=== PATIENT | male | born 2000 | race Caucasian/White ===

== ENCOUNTER 2022-02-10 06:16 | Emergency (ER) | payer BC ==
[2022-02-10 06:48] VITALS: TEMP 99.1; BMI 24.3
[2022-02-10] MEDS ORDERED: LACTATED RINGERS SOLUTION 1000 ML INFUS.BAG IV ONE (07:40)
[2022-02-10] MEDS ORDERED: SODIUM CHLORIDE 0.9% 500 ML INFUS.BAG IV ONE ×3 (07:43→09:40)
[2022-02-10 08:00] LABS: VENOUS BASE EXCESS -2.9 mmol/L (-2-2); VENOUS O2 SATURATION 34.2 % (70-80); VENOUS PCO2 49.1 mmHg (38-52); VENOUS PH 7.306 (7.310-7.410)
[2022-02-10 08:10] LABS: BASO % 0.3 % (0-2.0); EOS % 0.2 % (0-4.5); HEMATOCRIT 46.9 % (35.4-49); HEMOGLOBIN 15.3 GM/dL (11.7-16.9); MCH 26.4 pg (25.7-33.7); MCHC 32.7 g/dl (32.0-35.9); MEAN CELL VOLUME 80.9 fl (80-96); MEAN PLT VOLUME 9.6 fl (7.5-11.1); MONO % 16.3 % (3.8-10.2); NEUT % 70.2 % (42.8-82.8); PLATELET COUNT 197 10^3/uL (134-434); RDW 13.3 % (11.9-15.9); WHITE BLOOD COUNT 5.6 K/mm3 (4.0-10.0)
[2022-02-10 08:24] LABS: CALCIUM 9.2 mg/dL (8.5-10.1)
[2022-02-10 08:25] LABS: ALBUMIN 4.2 g/dl (3.4-5.0); BLOOD UREA NITROGEN 12.8 mg/dL (7-18); CO2 25 mmol/L (21-32); MAGNESIUM 1.9 mg/dL (1.8-2.4)
[2022-02-10 08:28] LABS: CREATININE 1.5 mg/dL (0.55-1.3); SGOT/AST 17 U/L (15-37); SGPT/ALT 36 U/L (13-61)
[2022-02-10 08:30] LABS: BILIRUBIN,TOTAL 0.7 mg/dL (0.2-1); TOT PROT 7.8 g/dl (6.4-8.2)
[2022-02-10 08:32] LABS: ALK PHOS 52 U/L (45-117)
[2022-02-10 08:34] LABS: ANION GAP 13 MMOL/L (8-16); CHLORIDE 96 mmol/L (98-107); SODIUM 134 mmol/L (136-145)
[2022-02-10 08:45] LABS: GLUCOSE,RANDOM 693 mg/dL (74-106)
[2022-02-10] MEDS ORDERED: INSULIN REGULAR HUMAN 100 UNITS/ML *VIAL SQ ONE (09:00)
[2022-02-10] MEDS ORDERED: INSULIN (LEVEMIR) 100 UNITS/ML UNITS SQ ONE (09:23)
[2022-02-10 12:47] LABS: CALCIUM 8.4 mg/dL (8.5-10.1)
[2022-02-10 12:48] LABS: BLOOD UREA NITROGEN 11.8 mg/dL (7-18)
[2022-02-10 12:51] LABS: CREATININE 1.1 mg/dL (0.55-1.3)
[2022-02-10 13:23] VITALS: BP 111/64; PULSE 95; RESP 18
== END 2022-02-10 14:04 | disposition home or self-care (01) ==
LOC: JER 06:16
PROC: 3E023GC Introduction of Other Therapeutic Substance into Muscle, Percutaneous Approach (ICD-10-PCS; principal; 2022-02-10)
DX: J09.X2 Influenza due to identified novel influenza A virus with other respiratory manifestations (principal); E11.9 Type 2 diabetes mellitus without complications
CPT/HCPCS: 0241U-QW; 36415; 70450-TC; 80048; 80053; 82010; 82803; 82962; 83735; 85025; 99285-25